=== PATIENT | female | born 1990 ===

== ENCOUNTER 2016-07-19 10:25 | Emergency (ER) | payer OTHER ==
[2016-07-19 10:31] VITALS: TEMP 98; BMI 30.2
--- NOTE | 2016-07-19 11:15 | ED PDOC ---
HPI: Abdomen Time Seen by Provider: 07/19/16 10:38 Chief Complaint (Nursing): Abdominal Pain History Per: Patient History/Exam Limitations: no limitations Onset/Duration Of Symptoms: Gradual (today) Current Symptoms Are (Timing): Still Present Severity: Mild Location Of Pain/Discomfort: RLQ Quality Of Discomfort: Dull, Aching Associated Symptoms: denies: Fever, Chills, Nausea, Vomiting, Diarrhea, Back Pain, Chest Pain, Constipation, Urinary Symptoms Exacerbating Factors: None Alleviating Factors: None Last Bowel Movement: Yesterday Additional History Per: Patient Additional Complaint(s): pt is 7 weeks , c/o rlq abd pain since last night. pt denies vag bleeding. pt is g3,p1, misca 1. no trauma Past Medical History Reviewed: Historical Data, Nursing Documentation, Vital Signs Vital Signs: Last Vital Signs Temp 98 F 07/19/16 10:30 Pulse 95 H 07/19/16 10:30 Resp 18 07/19/16 10:39 BP 115/60 07/19/16 10:30 Pulse Ox 99 07/19/16 11:15 - Medical History PMH: No Chronic Diseases - Surgical History Surgical History: - Family History Family History: States: Unknown Family Hx - Living Arrangements Living Arrangements: With Family - Social History Current smoker - smoking cessation education provided: No - Immunization History Hx Tetanus Toxoid Vaccination: No Hx Influenza Vaccination: Yes (2014) Hx Pneumococcal Vaccination: No - Home Medications Home Medications: Ambulatory Orders Medication Instructions Recorded No Known Home Med 06/16/16 - Allergies Allergies/Adverse Reactions: Allergies Allergy/AdvReac Type Severity Reaction Status Date / Time ibuprofen Allergy RASH Verified 07/19/16 10:39 Review of Systems ROS Statement: Except As Marked, All Systems Reviewed And Found Negative Constitutional: Negative for: Fever, Chills Respiratory: Negative for: Cough, Shortness of Breath Gastrointestinal: Positive for: Abdominal Pain. Negative for: Nausea, Vomiting , Diarrhea Genitourinary Female: Positive for: Pelvic Pain. Negative for: Dysuria, Vaginal Discharge, Vaginal Bleeding Neurological: Negative for: Weakness, Numbness Physical Exam - Reviewed Nursing Documentation Reviewed: Yes Vital Signs Reviewed: Yes - Physical Exam Appears: Positive for: Well, Uncomfortable Head Exam: Positive for: ATRAUMATIC, NORMAL INSPECTION, NORMOCEPHALIC Neck: Positive for: Normal, Painless ROM, Supple Cardiovascular/Chest: Positive for: Regular Rate, Rhythm, Chest Non Tender. Negative for: Edema, Gallop Respiratory: Positive for: Normal Breath Sounds. Negative for: Decreased Breath Sounds, Accessory Muscle Use, Crackles Gastrointestinal/Abdominal: Positive for: Normal Exam, Bowel Sounds, Soft, Other (obese). Negative for: Tenderness Back: Positive for: Normal Inspection. Negative for: L CVA Tenderness, R CVA Tenderness, Vertebral Tenderness Extremity: Positive for: Normal ROM. 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 Negative for: Motor/Sensory Deficits - Laboratory Results Result Diagrams: 07/19/16 11:15 07/19/16 11:15 - ECG O2 Sat by Pulse Oximetry: 99 Pulse Ox Interpretation: Normal - Progress ED Course And Treament: us IMPRESSION: Single live intrauterine gestation of approximately 7 weeks 5 days gestational age. No subchorionic hemorrhage. Cervix closed. Possible right ovarian corpus luteum. No free fluid. repeat abd exam reveals no tenderness no signs of infection. advise close f/u with pmd tomorrow and if unable to return to this ed for eval. pt agree's with plan and leaves ambulatory and in good spirits. Re-evaluation Time: 13:37 Condition: Improved Disposition - Clinical Impression Clinical Impression: Abdominal pain during - Patient ED Disposition Is Patient to be Admitted: No Counseled Patient/Family Regarding: Studies Performed, Diagnosis, Need For Followup - Disposition Disposition: Routine/Home Disposition Time: 13:38 Condition: GOOD Additional Instructions: see your docotr by tomorrow if unbale return to the ed for eval. Instructions: Abdominal Pain in (ED)
[2016-07-19 11:32] LABS: BASO % 0.4 % (0.0-2.0); EOS # 0.1 K/uL (0.0-0.7); EOS % 1.5 % (0.0-4.0); HEMATOCRIT 39.1 % (34.0-47.0); LYMPH % 23.7 % (20.0-40.0); MEAN CELL VOLUME 85.4 fl (81.0-99.0); MEAN CORPUSCULAR HEMOGLOBIN 27.9 pg (27.0-31.0); MEAN CORPUSCULAR HGB CONC 32.7 g/dL (33.0-37.0); MEAN PLATELET VOLUME 9.6 fl (7.2-11.7); MONO # 0.8 K/uL (0.0-0.8); MONO % 9.2 % (0.0-10.0); NEUT # 5.6 K/uL (1.8-7.0); NEUT % 65.2 % (50.0-75.0); RED CELL DISTRIBUTION WIDTH 14.3 % (11.5-14.5); WHITE BLOOD COUNT 8.7 K/uL (4.8-10.8)
[2016-07-19 11:34] LABS: RBC URINE 2 /hpf (0-3); URINE BILIRUBIN NEGATIVE (NEGATIVE); URINE BLOOD NEGATIVE (NEGATIVE); URINE COLOR YELLOW (YELLOW); URINE GLUCOSE (UA) NEG (Normal); URINE KETONE NEGATIVE (NEGATIVE); URINE LEUKOCYTE ESTERASE NEG Leu/uL (Negative); URINE PROTEIN 30 mg/dL (NEGATIVE); URINE UROBILINOGEN 0.2-1.0 mg/dL (0.2-1.0); WBC URINE 1 /hpf (0-5)
[2016-07-19 11:38] LABS: ALB/GLOB RATIO 1.1 (1.0-2.1); ALKALINE PHOSPHATASE 49 U/L (38-126); ALT/SGPT 18 U/L (9-52); AST/SGOT 19 U/L (14-36); BILIRUBIN,TOTAL 0.5 mg/dl (0.2-1.3); BLOOD UREA NITROGEN 12 mg/dl (7-17); CALCIUM 9.2 mg/dL (8.4-10.2); CARBON DIOXIDE 23 mmol/L (22-30); CHLORIDE 107 mmol/L (98-107); GFR AFRICAN-AMERICAN > 60; GLUCOSE,RANDOM 70 mg/dL (65-105); LIPASE 45 U/L (23-300); POTASSIUM 3.6 MMOL/L (3.6-5.0); SODIUM 142 mmol/l (132-148); TOTAL PROTEIN 6.9 G/DL (6.3-8.2)
--- NOTE | 2016-07-19 13:07 | US ---
PROCEDURE: Obstetrical ultrasound examination HISTORY: rlq abd pain COMPARISON: Not available TECHNIQUE: Transabdominal FINDINGS: The examination demonstrates a single live intrauterine gestation. cardiac activity is observed. The heart rate is 113 beats per minute. 4 mm yolk sac is visualized. There is no subchorionic hemorrhage. The crown-rump length corresponds to 8 weeks 1 day. The gestational sac diameter corresponds to 7 weeks 1 day. The average ultrasound age is 7 weeks 5 days. The RAMON by ultrasound is 03/02/2017. The uterus measures 13.6 x 8.2 x 5.8 cm. The cervix is long and closed. The right ovary measures 2.1 x 2.2 x 2.8 cm. Questionable right ovarian corpus luteum. Normal flow is demonstrated. The left ovary measures 2.5 x 1.6 x 2.3 cm. Normal flow is demonstrated. There is no free fluid in the cul-de-sac. IMPRESSION: Single live intrauterine gestation of approximately 7 weeks 5 days gestational age. No subchorionic hemorrhage. Cervix closed. Possible right ovarian corpus luteum. No free fluid.
[2016-07-19 14:11] VITALS: BP 137/88; PULSE 84; RESP 16; O2SAT 100
== END 2016-07-19 14:10 | disposition home or self-care (01) ==
LOC: H.ER 10:25
DX: O26.891 Other specified pregnancy related conditions, first trimester (principal); R10.9 Unspecified abdominal pain; Z3A.01 Less than 8 weeks gestation of pregnancy

== ENCOUNTER 2016-07-31 09:23 | Inpatient (IN) | payer OTHER ==
[2016-07-31 09:24] VITALS: BMI 30.2
--- NOTE | 2016-07-31 10:15 | ED PDOC ---
HPI: Female Pain Time Seen by Provider: 07/31/16 09:54 Chief Complaint (Nursing): Medical Clearance Chief Complaint (Provider): Medical Clearance History Per: Patient History/Exam Limitations: no limitations Onset/Duration Of Symptoms: Days (x1 day) Current Symptoms Are (Timing): Still Present Additional Complaint(s): 26 y/o female who presents to the emergency department because patient was advised to visit the ER after sonogram results showed the baby had no heartbeat at [facility] around 6:30 pm yesterday, 07/30/2016. Patient is 8week and 5 days . Denies vaginal bleeding or pelvic pain. A5. PMD: Dr. Chucky Gilbert MD Past Medical History Reviewed: Historical Data, Nursing Documentation, Vital Signs Vital Signs: Last Vital Signs Temp 97.5 F L 07/31/16 09:27 Pulse 80 07/31/16 09:27 Resp 16 07/31/16 09:27 BP 124/78 07/31/16 09:27 Pulse Ox 99 07/31/16 09:27 - Medical History PMH: No Chronic Diseases - Surgical History Surgical History: - Family History Family History: States: Unknown Family Hx - Social History Current smoker - smoking cessation education provided: No Alcohol: None Drugs: Denies - Immunization History Hx Tetanus Toxoid Vaccination: No Hx Influenza Vaccination: Yes (2014) Hx Pneumococcal Vaccination: No - Home Medications Home Medications: Ambulatory Orders Medication Instructions Recorded No Known Home Med 06/15/16 No Known Home Med 06/16/16 - Allergies Allergies/Adverse Reactions: Allergies Allergy/AdvReac Type Severity Reaction Status Date / Time ibuprofen Allergy RASH Verified 07/31/16 10:04 Review of Systems ROS Statement: Except As Marked, All Systems Reviewed And Found Negative Genitourinary Female: Positive for: Other (: baby with no heartbeat). Negative for: Vaginal Bleeding, Pelvic Pain Physical Exam - Reviewed Nursing Documentation Reviewed: Yes Vital Signs Reviewed: Yes - Physical Exam Appears: Positive for: Non-toxic, No Acute Distress Head Exam: Positive for: ATRAUMATIC, NORMOCEPHALIC Skin: Positive for: Normal Color, Warm, Dry Neck: Positive for: Normal, Supple Cardiovascular/Chest: Positive for: Regular Rate, Rhythm. Negative for: Murmur Respiratory: Positive for: Normal Breath Sounds. Negative for: Accessory Muscle Use, Respiratory Distress Gastrointestinal/Abdominal: Positive for: Normal Exam, Soft. Negative for: Tenderness Neurologic/Psych: Positive for: Alert, Oriented - Laboratory Results Result Diagrams: 07/31/16 10:31 07/31/16 10:31 - ECG O2 Sat by Pulse Oximetry: 99 (RA) Pulse Ox Interpretation: Normal - Physician Consult Information Time Consulting Physican Contacted: 10:13 Physician Contacted: Chucky Gilbert Outcome Of Conversation: Admit for D&C, basic labs. Medical Decision Making Medical Decision Making: Time: 9:09 Initial impression: Demises Initial plan: --ABO/RH Type Stat --Type and Screen Stat --COMP Metabolic Panel --ED Urine Dipstick (POC) --CBC w/ differential --Partial Thromboplastin Time (COAG) --Prothrombin time (COAG) --Urinalysis Stat --Admit to hospital routine Scribe Attestation: Documented by Gemma Hoskins, acting as a scribe for Aga Ann. Provider Scribe Attestation: All medical record entries made by the Scribe were at my direction and personally dictated by me. I have reviewed the chart and agree that the record accurately reflects my personal performance of the history, physical exam, medical decision making, and the department course for this patient. I have also personally directed, reviewed, and agree with the discharge instructions and disposition. Disposition - Clinical Impression Clinical Impression: demise - Patient ED Disposition Is Patient to be Admitted: Yes - Disposition Disposition Time: 10:04 Condition: STABLE - Pt Status Changed To: Hospital Disposition Of: Observation - POA Present On Arrival: None
[2016-07-31 10:42] LABS: BASO # 0.1 K/uL (0.0-0.2); BASO % 0.9 % (0.0-2.0); EOS # 0.2 K/uL (0.0-0.7); EOS % 1.9 % (0.0-4.0); HEMATOCRIT 40.9 % (34.0-47.0); LYMPH # 2.3 K/uL (1.0-4.3); LYMPH % 28.1 % (20.0-40.0); MEAN CORPUSCULAR HEMOGLOBIN 28.1 pg (27.0-31.0); MEAN CORPUSCULAR HGB CONC 33.1 g/dL (33.0-37.0); MONO # 0.5 K/uL (0.0-0.8); MONO % 6.3 % (0.0-10.0); NEUT # 5.2 K/uL (1.8-7.0); NEUT % 62.8 % (50.0-75.0); NRBC % 0.2 % (0.0-0.0); RED CELL DISTRIBUTION WIDTH 14.6 % (11.5-14.5); WHITE BLOOD COUNT 8.3 K/uL (4.8-10.8)
[2016-07-31 10:50] LABS: RBC URINE 3 /hpf (0-3); URINE BILIRUBIN NEGATIVE (NEGATIVE); URINE BLOOD NEGATIVE (NEGATIVE); URINE COLOR YELLOW (YELLOW); URINE GLUCOSE (UA) NEG (Normal); URINE KETONE NEGATIVE (NEGATIVE); URINE LEUKOCYTE ESTERASE TRACE Leu/uL (Negative); URINE PROTEIN 30 mg/dL (NEGATIVE); URINE UROBILINOGEN 0.2-1.0 mg/dL (0.2-1.0); WBC URINE 3 /hpf (0-5)
[2016-07-31 10:52] LABS: ALB/GLOB RATIO 1.1 (1.0-2.1); ALT/SGPT 30 U/L (9-52); AST/SGOT 31 U/L (14-36); BILIRUBIN,TOTAL 0.8 mg/dl (0.2-1.3); BLOOD UREA NITROGEN 11 mg/dl (7-17); CALCIUM 9.3 mg/dL (8.4-10.2); CARBON DIOXIDE 22 mmol/L (22-30); CHLORIDE 105 mmol/L (98-107); GFR AFRICAN-AMERICAN > 60; GLUCOSE,RANDOM 81 mg/dL (65-105); POTASSIUM 4.2 MMOL/L (3.6-5.0); SODIUM 143 mmol/l (132-148); TOTAL PROTEIN 7.8 G/DL (6.3-8.2)
[2016-07-31 10:53] LABS: ALKALINE PHOSPHATASE 53 U/L (38-126); PARTIAL THROMBOPLASTIN TIME 27.5 SECONDS (23.3-32.5)
[2016-07-31] MEDS ORDERED: Propofol 10 mg/ml Inj (20 ML) ONE (13:34)
[2016-07-31] MEDS ORDERED: Oxytocin 10 Units/ml Inj ONE ×2 (13:52→14:21)
[2016-07-31] MEDS ORDERED: Lactated Ringer's 1,000 ML IV ONE (14:00)
[2016-07-31] MEDS ORDERED: Chlorhexidine Gluconate 2OZ GEL TP ONE (14:06)
[2016-07-31] MEDS ORDERED: DiphenhydrAMINE 50 mg/ml Inj IVP PRN (14:54)
[2016-07-31] MEDS ORDERED: Oxycodone/Acetaminophen 5/325 mg Tab PO PRN (15:08)
[2016-07-31] MEDS ORDERED: Sodium Chloride 0.9% 1,000 ML IV SCH (15:45)
[2016-07-31 20:55] VITALS: BP 115/77; PULSE 90; RESP 18; TEMP 98.4
--- NOTE | 2016-08-01 08:29 | OP ---
PROCEDURE DATE: 07/31/2016 PREOPERATIVE DIAGNOSIS: Miss . POSTOPERATIVE DIAGNOSIS: Missed , pending pathology. SURGEON: Chucky Gilbert MD ANESTHESIA: Dr. Cason, general anesthesia. PROCEDURE: With the patient in the dorsal lithotomy position under general anesthesia, the patient w as prepped and draped in the usual manner. A straight catheter was used to empty the bladder after w hich the patient was examined under anesthesia. The uterus was found to be enlarged. The weighted s peculum was placed in the posterior vagina. Cervix was grasped anteriorly with single tooth tenaculu m, dilated and curetted with suction curettage and also sharp curetting. Obtained a large amount of tissue. Estimated blood loss of about 100-150 mL. After this was done and hemostasis was maintained , the procedure was completed and the patient was in satisfactory condition on the way to the recover y room. Chucky Gilbert MD cc: 22 TT: 08/01/2016 08:28:56 jn
[2016-08-01 22:12] VITALS: O2SAT 99
--- NOTE | 2016-08-07 13:25 | PCM.SURG1 ---
Surgeon's Initial Post Op Note - Surgeon's Notes Surgeon: Dr.George Musa Medical Lab Tech Instructor: none Type of Anesthesia: General Endo, General LMA Anesthesia Administered By: Pre-Operative Diagnosis: missed Operative Findings: large amount of tissue on curettage Post-Operative Diagnosis: same pending pathology Operation Performed: dilatation and curettage with suction Specimen/Specimens Removed: poc Estimated Blood Loss: EBL {In ML}: 100 Blood Products Given: N/A Drains Used: No Drains Post-Op Condition: Good Date of Surgery/Procedure: 07/31/16 Time of Surgery/Procedure: 02:00 Addendum Addendum: 08/03/16 17:06 procedure done was dilatation and curretage with suction adolfo missed
--- NOTE | 2016-08-07 15:09 | OP ---
PROCEDURE DATE: 07/31/2016 ADDENDUM The procedure that was done on the patient is dilatation and curettage with suction. Chucky Gilbert MD cc: 22 TT: 08/07/2016 15:08:22 en
== END 2016-07-31 20:30 | disposition home or self-care (01) | DRG 381 ==
LOC: H.ER 09:23 → H.ERHOLD 10:14 → H.MEDSURG1 11:02
PROVIDERS: ADMIT Specialist; ATTEND Specialist
PROC: 10D17ZZ Extraction of Products of Conception, Retained, Via Natural or Artificial Opening (ICD-10-PCS; principal; 2016-07-31 14:15)
DX: O02.1 Missed abortion (principal); Z88.6 Allergy status to analgesic agent; Z3A.08 8 weeks gestation of pregnancy

== ENCOUNTER 2016-11-24 20:36 | Emergency (ER) | payer OTHER ==
[2016-11-24 20:46] VITALS: BMI 29.2
[2016-11-24 20:48] VITALS: BP 119/70; PULSE 92; RESP 18; TEMP 99.1; O2SAT 100
[2016-11-24] MEDS ORDERED: Sodium Chloride 0.9% 1,000 ML IV STA (21:08)
--- NOTE | 2016-11-24 21:12 | ED PDOC ---
HPI: General Adult Time Seen by Provider: 11/24/16 20:56 Chief Complaint (Nursing): GI Problem Chief Complaint (Provider): 8wks gestation, vomiting History Per: Patient History/Exam Limitations: no limitations Onset/Duration Of Symptoms: Days (2 weeks) Current Symptoms Are (Timing): Still Present Additional History Per: Patient Additional Complaint(s): 26 y/o female, approx 8 weeks gestation, presents with vomiting x 2 weeks. Associated lower pelvic cramping. Patient states she called her Bioinformatics Developer Dr. Evans today and was advised to come to the ED. Denies fever, cough, congestion, chest pain, shortness of breath, palpitations, changes in bowel movements, urinary symptoms, vaginal bleeding/discharge. LMP 09/23/16 Past Medical History Reviewed: Historical Data, Nursing Documentation, Vital Signs Vital Signs: Last Vital Signs Temp 99.1 F 11/24/16 20:46 Pulse 92 H 11/24/16 20:46 Resp 18 11/24/16 20:46 BP 119/70 11/24/16 20:46 Pulse Ox 100 11/24/16 23:09 - Medical History PMH: No Chronic Diseases Denies: HIV, Chronic Kidney Disease - Surgical History Surgical History: - Family History Family History: States: Unknown Family Hx - Living Arrangements Living Arrangements: With Family - Immunization History Hx Tetanus Toxoid Vaccination: No Hx Influenza Vaccination: No Hx Pneumococcal Vaccination: No - Home Medications Home Medications: Ambulatory Orders Medication Instructions Recorded No Known Home Med 06/15/16 No Known Home Med 06/16/16 - Allergies Allergies/Adverse Reactions: Allergies Allergy/AdvReac Type Severity Reaction Status Date / Time ibuprofen Allergy RASH Verified 11/24/16 20:46 Review of Systems ROS Statement: Except As Marked, All Systems Reviewed And Found Negative Gastrointestinal: Positive for: Nausea, Vomiting Genitourinary Female: Positive for: Pelvic Pain Physical Exam - Reviewed Nursing Documentation Reviewed: Yes Vital Signs Reviewed: Yes - Physical Exam Appears: Positive for: Well, Non-toxic, No Acute Distress Head Exam: Positive for: ATRAUMATIC, NORMAL INSPECTION, NORMOCEPHALIC Skin: Positive for: Normal Color Eye Exam: Positive for: Normal appearance ENT: Positive for: Normal ENT Inspection Cardiovascular/Chest: Positive for: Regular Rate, Rhythm Respiratory: Positive for: Normal Breath Sounds Gastrointestinal/Abdominal: Positive for: Bowel Sounds, Soft, Tenderness ( suprapubic) Back: Positive for: Normal Inspection Extremity: Positive for: Normal ROM Neurologic/Psych: Positive for: Alert, Oriented - Laboratory Results Result Diagrams: 11/24/16 21:41 11/24/16 21:41 Urine POC: Positive Urine dip results: Negative for: Leukocyte Esterase, Blood, Nitrate, Ketones - ECG O2 Sat by Pulse Oximetry: 100 - Progress ED Course And Treament: labs, urine, IV fluids, IV zofran, OB TV u/s EXAM: US First Trimester, Transabdominal CLINICAL HISTORY: 26 years old, female; Pain; Other: Abd cramps; Gestational age or lmp: 09/27/16; ; Additional info: 8wks, cramping TECHNIQUE: Real-time transabdominal obstetrical ultrasound of the maternal pelvis and a first trimester with image documentation. COMPARISON: No relevant prior studies available. FINDINGS: Gestation: Single live intrauterine gestation. heart rate of 163 beats per minute. [place]-rump length of 1.84 cm, correlating with gestational age of 8 weeks 2 days. Uterus/cervix: No subchorionic hemorrhage. No cervical dilatation or effacement. Ovaries: RIGHT ovary: Normal. LEFT ovary: 1.4 x 1.5 x 1.4 cm anechoic lesion. No adnexal masses. Free fluid: No significant free fluid. IMPRESSION: 1. Single live intrauterine gestation. 2. LEFT ovarian cyst. 3. Incidental/non-acute findings are described above On re-eval, patient states she is feeling better. Tolerating PO. Case discussed with Dr. Evans, recommends follow up in office tomorrow am. Patient educated on findings, advised fluids. Follow up as instructed. Return to ED for worsening/concerning symptoms. Disposition - Clinical Impression Clinical Impression: Hyperemesis gravidarum, Ovarian cyst - Patient ED Disposition Is Patient to be Admitted: No Counseled Patient/Family Regarding: Studies Performed, Diagnosis, Need For Followup - Disposition Disposition: Routine/Home Disposition Time: 23:33 Condition: IMPROVED Additional Instructions: Follow up with Dr. Evans in the office tomorrow morning. Drink plenty of fluids. Return to ED for worsening/concerning symptoms. Instructions: Hyperemesis Gravidarum (ED), Ovarian Cyst (ED)
[2016-11-24 21:47] LABS: BASO % 0.4 % (0.0-2.0); EOS # 0.1 K/uL (0.0-0.7); HEMOGLOBIN 12.4 g/dL (12.0-16.0); LYMPH # 2.4 K/uL (1.0-4.3); LYMPH % 19.5 % (20.0-40.0); MEAN CORPUSCULAR HEMOGLOBIN 27.4 pg (27.0-31.0); MEAN PLATELET VOLUME 9.8 fl (7.2-11.7); MONO # 0.8 K/uL (0.0-0.8); MONO % 6.4 % (0.0-10.0); NEUT # 9.1 K/uL (1.8-7.0); NEUT % 72.7 % (50.0-75.0); RBC 4.51 Mil/uL (3.80-5.20); RED CELL DISTRIBUTION WIDTH 14.6 % (11.5-14.5); WHITE BLOOD COUNT 12.5 K/uL (4.8-10.8)
[2016-11-24 21:56] LABS: ALB/GLOB RATIO 1.2 (1.0-2.1); ALBUMIN 3.8 g/dL (3.5-5.0); ALT/SGPT 63 U/L (9-52); AST/SGOT 37 U/L (14-36); BLOOD UREA NITROGEN 11 mg/dl (7-17); CALCIUM 8.9 mg/dL (8.4-10.2); GFR AFRICAN-AMERICAN > 60; GFR NON-AFRICAN AMERICAN > 60
--- NOTE | 2016-11-24 23:00 | US ---
EXAM: US First Trimester, Transabdominal CLINICAL HISTORY: 26 years old, female; Pain; Other: Abd cramps; Gestational age or lmp: 09/27/; ; Additional info: 8wks, cramping TECHNIQUE: Real-time transabdominal obstetrical ultrasound of the maternal pelvis and a first trimester with image documentation. COMPARISON: No relevant prior studies available. FINDINGS: Gestation: Single live intrauterine gestation. heart rate of 163 beats per minute. [place]-rump length of 1.84 cm, correlating with gestational age of 8 weeks 2 days. Uterus/cervix: No subchorionic hemorrhage. No cervical dilatation or effacement. Ovaries: RIGHT ovary: Normal. LEFT ovary: 1.4 x 1.5 x 1.4 cm anechoic lesion. No adnexal masses. Free fluid: No significant free fluid. IMPRESSION: 1. Single live intrauterine gestation. 2. LEFT ovarian cyst. 3. Incidental/non-acute findings are described above.
== END 2016-11-24 23:48 | disposition home or self-care (01) ==
LOC: H.ER 20:36
DX: O21.0 Mild hyperemesis gravidarum (principal); N83.202 Unspecified ovarian cyst, left side; Z3A.08 8 weeks gestation of pregnancy; O26.891 Other specified pregnancy related conditions, first trimester; O34.81 Maternal care for other abnormalities of pelvic organs, first trimester

== ENCOUNTER 2016-12-01 10:01 | Emergency (ER) | payer OTHER ==
[2016-12-01 10:02] VITALS: BMI 29.2
[2016-12-01 10:06] VITALS: BP 123/80; PULSE 81; RESP 17; TEMP 98.5; O2SAT 100
[2016-12-01] MEDS ORDERED: Sodium Chloride 0.9% 1,000 ML IV STA (10:49)
--- NOTE | 2016-12-01 10:52 | ED PDOC ---
HPI: Female Pain Time Seen by Provider: 12/01/16 10:11 Chief Complaint (Nursing): GI Problem Chief Complaint (Provider): Hyperemisis History Per: Patient Additional Complaint(s): 26 yo female, no PMH, presents to ED currently at 9 weeks (), with severe nausea and vomiting x 1 week now. Pt reports 4-5 episodes of non bloody, non billious vomiting daily with decreased PO intake. Pt on Zofran, Prescribed to her by Dr. Tellez, without relief. Pt reports she has seen Dr. Anaya for her N/V, has not had an US yet. First Ob appt on Dec 10 Past Medical History Reviewed: Nursing Documentation, Vital Signs Vital Signs: Last Vital Signs Temp 98.5 F 12/01/16 10:04 Pulse 81 12/01/16 10:04 Resp 17 12/01/16 10:04 BP 123/80 12/01/16 10:04 Pulse Ox 100 12/01/16 10:04 - Medical History PMH: No Chronic Diseases Denies: HIV, Chronic Kidney Disease - Surgical History Surgical History: - Family History Family History: States: Unknown Family Hx - Living Arrangements Living Arrangements: With Family - Social History Current smoker - smoking cessation education provided: No Alcohol: None Drugs: Denies - Immunization History Hx Tetanus Toxoid Vaccination: No Hx Influenza Vaccination: No Hx Pneumococcal Vaccination: No - Home Medications Home Medications: Ambulatory Orders Medication Instructions Recorded Doxylamine/Pyridoxine HCl (B6) 2 each PO HS #20 tablet. 12/01/16 [Melissa Mandujano 10-10 mg Tablet] - Allergies Allergies/Adverse Reactions: Allergies Allergy/AdvReac Type Severity Reaction Status Date / Time ibuprofen Allergy RASH Verified 12/01/16 10:22 Review of Systems ROS Statement: Except As Marked, All Systems Reviewed And Found Negative Gastrointestinal: Positive for: Nausea, Vomiting, Abdominal Pain Physical Exam - Reviewed Nursing Documentation Reviewed: Yes Vital Signs Reviewed: Yes - Physical Exam Appears: Positive for: Well, Non-toxic, No Acute Distress Head Exam: Positive for: ATRAUMATIC, NORMAL INSPECTION, NORMOCEPHALIC Skin: Positive for: Normal Color, Warm, DRY Eye Exam: Positive for: EOMI, Normal appearance, PERRL ENT: Positive for: Normal ENT Inspection Neck: Positive for: Normal, Painless ROM Cardiovascular/Chest: Positive for: Regular Rate, Rhythm Respiratory: Positive for: CNT, Normal Breath Sounds Gastrointestinal/Abdominal: Positive for: Normal Exam, Bowel Sounds, Soft Back: Positive for: Normal Inspection Extremity: Positive for: Normal ROM Neurologic/Psych: Positive for: Alert, Oriented - Laboratory Results Result Diagrams: 12/01/16 11:00 12/01/16 11:00 - ECG O2 Sat by Pulse Oximetry: 100 Medical Decision Making Medical Decision Making: IV access established and diagnostics ordered Treatment initiated with IVF and Zofran Pt doing well on re-eval, no complaints of N/V US: IMPRESSION: Single live intrauterine gestation with mean gestational age of 9 weeks and 6 days. The estimated date of delivery by ultrasound is 06/30/2017. The ultrasound dates correspond with the clinical dates. Given Melissa RX Advised to [facility] with dr. Tellez. return to ED with any concerns Disposition - Clinical Impression Clinical Impression: Hyperemesis gravidarum - Patient ED Disposition Is Patient to be Admitted: No - Disposition Disposition: Routine/Home Disposition Time: 16:06 Condition: STABLE Prescriptions: Doxylamine/Pyridoxine HCl (B6) [Melissa Mandujano 10-10 mg Tablet] 2 each PO HS #20 tablet. Instructions: Hyperemesis Gravidarum (ED) Forms: [employer] ([place]), [facility] ED School/Work Excuse
[2016-12-01 11:23] LABS: BASO % 0.2 % (0.0-2.0); EOS # 0.1 K/uL (0.0-0.7); EOS % 1.1 % (0.0-4.0); HEMATOCRIT 38.9 % (34.0-47.0); LYMPH # 1.6 K/uL (1.0-4.3); LYMPH % 17.1 % (20.0-40.0); MEAN CELL VOLUME 82.9 fl (81.0-99.0); MEAN CORPUSCULAR HEMOGLOBIN 27.8 pg (27.0-31.0); MEAN CORPUSCULAR HGB CONC 33.5 g/dL (33.0-37.0); MEAN PLATELET VOLUME 10.5 fl (7.2-11.7); MONO # 0.6 K/uL (0.0-0.8); MONO % 6.1 % (0.0-10.0); NEUT # 7.2 K/uL (1.8-7.0); NEUT % 75.5 % (50.0-75.0); RED CELL DISTRIBUTION WIDTH 14.6 % (11.5-14.5); WHITE BLOOD COUNT 9.6 K/uL (4.8-10.8)
[2016-12-01 11:41] LABS: ALB/GLOB RATIO 1.2 (1.0-2.1); ALKALINE PHOSPHATASE 53 U/L (38-126); ALT/SGPT 34 U/L (9-52); AST/SGOT 20 U/L (14-36); BILIRUBIN,TOTAL 0.5 mg/dl (0.2-1.3); BLOOD UREA NITROGEN 11 mg/dl (7-17); CALCIUM 9.1 mg/dL (8.4-10.2); CARBON DIOXIDE 20 mmol/L (22-30); CHLORIDE 105 mmol/L (98-107); GFR AFRICAN-AMERICAN > 60; GLUCOSE,RANDOM 78 mg/dL (65-105); SODIUM 134 mmol/l (132-148); TOTAL PROTEIN 7.1 G/DL (6.3-8.2)
--- NOTE | 2016-12-01 14:01 | US ---
PROCEDURE: OB Pelvic Ultrasound HISTORY: 9 w, cramping heavy COMPARISON: 11/24/2016. FINDINGS: UTERUS: Gestational sac: Single intrauterine gestation. Heart rate: 162 bpm. age (Ultrasound estimated): 9 weeks and 6 days [place]-gestational hemorrhage: None. Date of delivery (Ultrasound estimated) : 06/30/2017 Uterus measures 15.8 x 6.0 x 0.2 cm. Normal in size and appearance. CERVIX: Long and closed. No cervical abnormality seen. RIGHT OVARY: Measures 3.3 x 1.6 x 3.0 cm. No mass lesion. Normal flow. LEFT OVARY: Measures 3.5 x 2 point by 3.7 cm. No solid mass. Normal flow. FREE FLUID: None. OTHER FINDINGS: None. IMPRESSION: Single live intrauterine gestation with mean gestational age of 9 weeks and 6 days. The estimated date of delivery by ultrasound is 06/30/2017. The ultrasound dates correspond with the clinical dates.
[2016-12-01 14:26] LABS: RBC URINE 5 /hpf (0-3); URINE BACTERIA FEW (<OCC); URINE BILIRUBIN NEGATIVE (NEGATIVE); URINE BLOOD SMALL (NEGATIVE); URINE COLOR YELLOW (YELLOW); URINE GLUCOSE (UA) NEG (Normal); URINE KETONE NEGATIVE (NEGATIVE); URINE LEUKOCYTE ESTERASE NEG Leu/uL (Negative); URINE PROTEIN NEGATIVE (NEGATIVE); URINE UROBILINOGEN 0.2-1.0 mg/dL (0.2-1.0)
== END 2016-12-01 15:58 | disposition home or self-care (01) ==
LOC: H.ER 10:01
DX: O21.1 Hyperemesis gravidarum with metabolic disturbance (principal); Z3A.09 9 weeks gestation of pregnancy
CPT/HCPCS: 76815; 80053; 81003; 81025; 84702; 85025; 96361; 96374; 99282; J2405; J7040

== ENCOUNTER 2017-03-12 09:34 | Emergency (ER) | payer OTHER ==
[2017-03-12 10:24] VITALS: BMI 30.2
[2017-03-12 11:05] LABS: RBC URINE 4 /hpf (0-3); TRANSITIONAL EPITHIAL 2 /hpf (0-3); URINE BACTERIA MOD (<OCC); URINE BILIRUBIN NEGATIVE (NEGATIVE); URINE BLOOD NEGATIVE (NEGATIVE); URINE COLOR YELLOW (YELLOW); URINE GLUCOSE (UA) NEG (Normal); URINE KETONE NEGATIVE (NEGATIVE); URINE LEUKOCYTE ESTERASE TRACE Leu/uL (Negative); URINE PROTEIN 30 mg/dL (NEGATIVE); URINE UROBILINOGEN 0.2-1.0 mg/dL (0.2-1.0); WBC URINE 7 /hpf (0-5)
[2017-03-15 14:13] VITALS: BP 122/78; PULSE 102; RESP 18; TEMP 97.9; O2SAT 100
== END 2017-03-12 11:50 | disposition home or self-care (01) ==
LOC: H.EROB 09:34 → H.EROB2 09:34
DX: O46.92 Antepartum hemorrhage, unspecified, second trimester (principal); Z3A.23 23 weeks gestation of pregnancy

== ENCOUNTER 2017-05-08 05:24 | Emergency (ER) | payer OTHER ==
[2017-05-08 05:24] VITALS: BMI 30.2
[2017-05-08 05:43] VITALS: O2SAT 98
[2017-05-08] MEDS ORDERED: Sodium Chloride 0.9% 1,000 ML IV STA ×3 (05:48→08:39)
--- NOTE | 2017-05-08 05:57 | ED PDOC ---
HPI: CCC, URI, Sore Throat Time Seen by Provider: 05/08/17 05:39 Chief Complaint (Nursing): Headache Chief Complaint (Provider): headache History Per: Patient History/Exam Limitations: no limitations Onset/Duration Of Symptoms: Days (x2) Current Symptoms Are (Timing): Still Present Additional Complaint(s): 27 year old female, currently 31 weeks , who presents to the emergency department with a complaint of flu-like symptoms including headache, bodyaches, dry cough, nausea and 3 episodes of vomiting ongoing since last night. Denied any fever, chills, diarrhea or shortness of breath. PMD: Chucky Gilbert MD Past Medical History Reviewed: Historical Data, Nursing Documentation, Vital Signs Vital Signs: Last Vital Signs Temp 97 F L 05/08/17 12:25 Pulse 128 H 05/08/17 12:25 Resp 19 05/08/17 12:23 BP 110/80 05/08/17 12:25 Pulse Ox 98 05/09/17 06:49 - Medical History PMH: No Chronic Diseases Denies: HIV, Chronic Kidney Disease - Surgical History Surgical History: Denies: No Surg Hx - Family History Family History: States: Unknown Family Hx - Social History Current smoker - smoking cessation education provided: No Ex-Smoker (has not smoked in the last 12 months): No Alcohol: None Drugs: Denies - Immunization History Hx Tetanus Toxoid Vaccination: No Hx Influenza Vaccination: No Hx Pneumococcal Vaccination: No - Home Medications Home Medications: Ambulatory Orders Medication Instructions Recorded Doxylamine/Pyridoxine HCl (B6) 2 each PO HS #20 tablet. 12/01/16 [Melissa Mandujano 10-10 mg Tablet] Oseltamivir Phosphate [Tamiflu] 75 mg PO BID 5 Days capsule 05/08/17 - Allergies Allergies/Adverse Reactions: Allergies Allergy/AdvReac Type Severity Reaction Status Date / Time ibuprofen Allergy RASH Verified 12/01/16 10:22 Review of Systems ROS Statement: Except As Marked, All Systems Reviewed And Found Negative Constitutional: Positive for: Other (bodyaches). Negative for: Fever, Chills Respiratory: Positive for: Cough (dry). Negative for: Shortness of Breath Gastrointestinal: Positive for: Nausea, Vomiting (x3). Negative for: Diarrhea Neurological: Positive for: Headache Physical Exam - Reviewed Nursing Documentation Reviewed: Yes Vital Signs Reviewed: Yes - Physical Exam Appears: Positive for: Well, Non-toxic, No Acute Distress Head Exam: Positive for: ATRAUMATIC, NORMAL INSPECTION, NORMOCEPHALIC Skin: Positive for: Normal Color Eye Exam: Positive for: Normal appearance, EOMI, PERRL. Negative for: Nystagmus , Other (photophobia) ENT: Positive for: Normal ENT Inspection, Pharynx Is (within normal limits). Negative for: Pharyngeal Erythema, Tonsillar Exudate Neck: Positive for: Normal, Painless ROM, Supple. Negative for: Decreased ROM Cardiovascular/Chest: Positive for: Chest Non Tender, Tachycardia. Negative for : Regular Rate, Rhythm, Bradycardia Respiratory: Positive for: Normal Breath Sounds. Negative for: Decreased Breath Sounds, Wheezing, Respiratory Distress Gastrointestinal/Abdominal: Positive for: Normal Exam, Soft, Other (gravid uterus). Negative for: Tenderness Neurologic/Psych: Positive for: Alert (x3), Oriented - Laboratory Results Result Diagrams: 05/08/17 06:00 05/08/17 06:00 - ECG O2 Sat by Pulse Oximetry: 98 (RA) Pulse Ox Interpretation: Normal Medical Decision Making Medical Decision Making: Initial Impression: Flu-like symptoms in setting of Initial Plan: * EKG * CMP * Lact acid, plasma * Urine dipstick * CBC * NS 1,000ml IV per 1,000mls/hr * Reglan 10mg IVPB * Tamiflu 75mg PO * Tylenol 975mg PO * Blood culture * Influenza A B * UA ____ Time: 0700 --Patient endorsed to Dr. Garrett Tavera. Pending lab results and re- evaluation. Scribe Attestation: Documented by Dee Infante, acting as a scribe for Flako Joshi MD. Provider Scribe Attestation: All medical record entries made by the Scribe were at my direction and personally dictated by me. I have reviewed the chart and agree that the record accurately reflects my personal performance of the history, physical exam, medical decision making, and the department course for this patient. I have also personally directed, reviewed, and agree with the discharge instructions and disposition. Disposition - Clinical Impression Clinical Impression: Flu-like symptoms, Dehydration, Tachycardia - Disposition Disposition: Transfer of Care Disposition Time: 07:00 Condition: STABLE Additional Instructions: You will see the OBGYN in [place] today straight from the ER. Return if not better in 3 days. Prescriptions: Oseltamivir Phosphate [Tamiflu] 75 mg PO BID 5 Days capsule Instructions: Dehydration (ED), Upper Respiratory Infection (ED) Forms: [employer] (Kinyarwanda)
[2017-05-08 06:27] LABS: BASO % 0.2 % (0.0-2.0); EOS % 0.4 % (0.0-4.0); HEMOGLOBIN 10.7 g/dL (12.0-16.0); LYMPH # 0.7 K/uL (1.0-4.3); LYMPH % 8.4 % (20.0-40.0); MEAN CELL VOLUME 81.8 fl (81.0-99.0); MEAN CORPUSCULAR HEMOGLOBIN 26.5 pg (27.0-31.0); MEAN CORPUSCULAR HGB CONC 32.5 g/dL (33.0-37.0); MEAN PLATELET VOLUME 9.4 fl (7.2-11.7); MONO # 0.9 K/uL (0.0-0.8); MONO % 10.4 % (0.0-10.0); NEUT % 80.6 % (50.0-75.0); NRBC % 0.2 % (0.0-0.0); PLATELET COUNT 137 K/uL (130-400); RBC 4.01 Mil/uL (3.80-5.20); RED CELL DISTRIBUTION WIDTH 14.6 % (11.5-14.5); WHITE BLOOD COUNT 8.8 K/uL (4.8-10.8)
[2017-05-08 06:50] LABS: ALB/GLOB RATIO 0.9 (1.0-2.1); ALBUMIN 3.2 g/dL (3.5-5.0); ALT/SGPT 28 U/L (9-52); AST/SGOT 15 U/L (14-36); BLOOD UREA NITROGEN 5 mg/dl (7-17); CALCIUM 8.8 mg/dL (8.4-10.2); GFR AFRICAN-AMERICAN > 60; GFR NON-AFRICAN AMERICAN > 60
[2017-05-08 08:06] LABS: SQUAMOUS EPITHIAL 3 /hpf (0-5); URINE BACTERIA MOD (<OCC); URINE BILIRUBIN NEGATIVE (NEGATIVE); URINE BLOOD NEGATIVE (NEGATIVE); URINE CLARITY CLOUDY (Clear); URINE COLOR YELLOW (YELLOW); URINE GLUCOSE (UA) NEG (Normal); URINE LEUKOCYTE ESTERASE NEG Leu/uL (Negative); URINE NITRATE NEGATIVE (NEGATIVE); URINE PROTEIN 30 mg/dL (NEGATIVE)
[2017-05-08 11:35] LABS: BANDS 59 % (0-2); BASOPHIL 1 % (0-2); LYMPHOCYTE 1 % (20-50); MONOCYTE 2 % (0-10); NEUTROPHIL 35 % (42-75); PLASMACYTES 2 (0-0); TOTAL CELLS COUNTED 100
[2017-05-08 11:36] LABS: HYPOCHROMIC SLIGHT; PLATELET ESTIMATE NORMAL (NORMAL); POLYCHROMIC SLIGHT
--- NOTE | 2017-05-08 12:06 | ED PDOC ---
- Laboratory Results Result Diagrams: 05/08/17 06:00 05/08/17 06:00 - ECG O2 Sat by Pulse Oximetry: 98 - Progress ED Course And Treament: 700: Stable. Took over care from Dr. Joshi. Fu on hr and re-eval. 1145: Spoke with Dr. Musa. Will see pt. in [place] for further eval. Wants dc from ED. Aware of HR still 115-130. Pt. with no chest pain, dyspnea, leg pain. No palpitations. No weakness. Will rx tamiflu. AAOx3. Pain free. Tolerated PO. Disposition Counseled Patient/Family Regarding: Studies Performed, Diagnosis, Need For Followup, Rx Given - Clinical Impression Clinical Impression: Flu-like symptoms, Dehydration, Tachycardia - POA Present On Arrival: None - Disposition Referrals: Chucky Musa MD [Staff Provider] - 05/10/17 Disposition: Routine/Home Disposition Time: 12:07 Condition: STABLE Additional Instructions: You will see the OBGYN in [place] today straight from the ER. Return if not better in 3 days. Prescriptions: Oseltamivir Phosphate [Tamiflu] 75 mg PO BID 5 Days capsule Instructions: Dehydration (ED), Upper Respiratory Infection (ED) Forms: [employer] (Croatian)
[2017-05-08 12:24] VITALS: BP 110/80; PULSE 128; RESP 19
[2017-05-08 12:26] VITALS: TEMP 97
== END 2017-05-08 12:28 | disposition home or self-care (01) ==
LOC: H.ER 05:24
DX: J06.9 Acute upper respiratory infection, unspecified (principal); E86.0 Dehydration; Z3A.31 31 weeks gestation of pregnancy; O99.513 Diseases of the respiratory system complicating pregnancy, third trimester
CPT/HCPCS: 80053; 81003; 83605; 85025; 87040; 87804; 96361; 96365; 99285; J2765; J7040

== ENCOUNTER 2017-05-08 12:31 | Emergency (ER) | payer OTHER ==
[2017-05-08 13:24] VITALS: BMI 34.3
--- NOTE | 2017-05-08 16:23 | OBHP ---
Datetime: 05/08/2017 13:30 IP Adm Impression: , intrauterine IP Admit Plan: Observation/Evaluation Admit Comment, IP Provider: 27 yo ega 32.3 presents with 2 day history of cough. Pt denies sick contacts, vb, lof, ctx, CP/SOB/V/dysuria +: fm; nausea pnc: Dr. Evans obhx: c/s at 37 wks 2/2 preeclampsia; sab x5 gyne: denies sti; pap neg medhx: none famhx: none surg: c/s soc: denies smoking, etoh, illicit drugs rx: pnv Allergies: ibuprophen (hives) AAOX3; tachycardia cardiac: s1s2 lungs: clear bilaterally, no wheezing abdo: gravid 27 yo IUP 32.3 -cough, nausea -rx: acetaminophen and reglan - monitor -monitor mother for wellness case dw OB Kenneyd Vences MD PGY1 Pelvic Type - PN: Adequate Extremities - PN: Normal Abdomen - PN: Normal Back - PN: Normal Breast - PN: Normal Lungs - PN: Normal Heart - PN: Normal Thyroid - PN: Normal Neurologic - PN: Normal HEENT - PN: Normal General - PN: Normal Presentation-Admit: Vertex FHR - Baseline A Provider: 140 Contraction Comments Provider: none Gestation - Est Wks by US: 31.0 EGA AdmitDate IP: 32.3 Vital Signs Provider: Reviewed; Within Normal Limits IP Chief Complaint: Maternal discomfort NICHD Variability Prov Fetus A: Moderate 6-25bpm NICHD Accel Fetus A IP Provider: 15X15 FHR Category Provider Fetus A: Category I NICHD Decel Fetus A IP Provider: None Dilatation, Provider: 0 Genitourinary Exam: Normal DTRs - PN: Not Done
== END 2017-05-08 17:15 | disposition home or self-care (01) ==
LOC: H.EROB2 12:31
DX: O26.93 Pregnancy related conditions, unspecified, third trimester (principal); R05 Cough; Z3A.32 32 weeks gestation of pregnancy; Z87.59 Personal history of other complications of pregnancy, childbirth and the puerperium

== ENCOUNTER 2017-06-27 07:02 | Inpatient (IN) | payer OTHER ==
[2017-06-27 07:43] VITALS: BMI 33.3
[2017-06-27] MEDS ORDERED: ceFAZolin IV 2 gm in Dextrose 2 GM/50 ML BAG IVPB ONE (07:47)
[2017-06-27] MEDS ORDERED: Lactated Ringer's 1,000 ML IV SCH (08:00)
[2017-06-27] MEDS: Lactated Ringer's 1,000 ML IV SCH ×4 (08:00→22:05)
[2017-06-27] MEDS ORDERED: Oxytocin 30 units/LR 500ML 30 U/500 ML BAG IV SCH (08:00)
[2017-06-27 08:52] LABS: BASO % 0.4 % (0.0-2.0); EOS # 0.1 K/uL (0.0-0.7); EOS % 1.1 % (0.0-4.0); HEMOGLOBIN 10.7 g/dL (12.0-16.0); LYMPH # 2.5 K/uL (1.0-4.3); LYMPH % 21.6 % (20.0-40.0); MEAN CELL VOLUME 75.9 fl (81.0-99.0); MEAN CORPUSCULAR HEMOGLOBIN 24.8 pg (27.0-31.0); MEAN CORPUSCULAR HGB CONC 32.6 g/dL (33.0-37.0); MEAN PLATELET VOLUME 9.8 fl (7.2-11.7); MONO # 0.8 K/uL (0.0-0.8); MONO % 6.7 % (0.0-10.0); NEUT # 8.3 K/uL (1.8-7.0); NEUT % 70.2 % (50.0-75.0); NRBC % 0.2 % (0.0-0.0); RBC 4.31 Mil/uL (3.80-5.20); RED CELL DISTRIBUTION WIDTH 16.3 % (11.5-14.5); WHITE BLOOD COUNT 11.8 K/uL (4.8-10.8)
[2017-06-27] MEDS ORDERED: Morphine 1 mg/ml preservative-free Inj(Duramorph) ONE (10:21)
[2017-06-27] MEDS ORDERED: Morphine 1 mg/ml preservative-free Inj(Duramorph) IT ONE ×2 (11:02→14:48)
[2017-06-27] MEDS ORDERED: HYDROmorphone 0.5 mg/0.5 ml ISec IVP PRN (11:45)
--- NOTE | 2017-06-27 11:53 | OBADHP ---
Datetime: 06/27/2017 11:44 Admit Comment, IP Provider: iup at 39 weeks uneventful course previous section admitted for repeat sectio and bilateral tubal ligation Pelvic Type - PN: Adequate Extremities - PN: Normal Abdomen - PN: Normal Back - PN: Normal Breast - PN: Normal Lungs - PN: Normal Heart - PN: Normal Thyroid - PN: Normal Neurologic - PN: Normal HEENT - PN: Normal General - PN: Normal Presentation-Admit: Vertex FHR - Baseline A Provider: 130 Membranes, Provider: Intact Gestation - Est Wks by US: 39.0 Vital Signs Provider: Reviewed; Within Normal Limits NICHD Accel Fetus A IP Provider: 10X10 FHR Category Provider Fetus A: Category I NICHD Decel Fetus A IP Provider: None Genitourinary Exam: Normal DTRs - PN: Normal IP Adm Impression: Term, intrauterine ; Intact Membranes IP Admit Plan: Admit to unit; Initiate Section protocol Datetime: 06/27/2017 08:19 IP Chief Complaint: Scheduled Section NICHD Variability Prov Fetus A: Moderate 6-25bpm EGA AdmitDate IP: 39.0 Datetime: 05/08/2017 13:30 Contraction Comments Provider: none Dilatation, Provider: 0 Datetime: 03/12/2017 12:49 Effacement, Provider: 0 Station, Provider: -3
--- NOTE | 2017-06-27 12:00 | OBDS ---
DELIVERY PERSONNEL Delivery Doctor: Rahat Gilbert MD Signal Integrity Engineer: Tessa Nicolas RN Anesthesiologist: Dr. Brantley MATERNAL INFORMATION Delivery Anesthesia: Spinal Medications in Delivery: pitocin Estimated Blood Loss (ml): 750 Placenta Cultured: No Maternal Complications: None Provider Comments: delivery of live baby girl 9/9 clear fluid cor with 3 vessels placenta ante rior tubes and ovaries wnl bilateral tubal ligation modified armida LABOR SUMMARY EDC: 07/04/2017 00:00 No. Babies in Womb: 1 LABOR INFORMATION Reason for Induction: Not Applicable Onset of Labor: not in labor. pt is scheduled repeat c/s Group B Beta Strep: Positive Steroids Given: None Reason Steroids Not Administered: Not Applicable STAGES OF LABOR Stage 3 hrs: 0 Stage 3 min: 1 VAGINAL DELIVERY Episiotomy: None Laceration Extension: N/A Laceration Type: None CSECTION DELIVERY Primary Indication: Repeat Elective Secondary Indication: Repeat Elective CSection Urgency: Elective CSection Incidence: Repeat Labor: N/A CSection Incision: N/A Sterilization Procedure: Armida BABY A INFORMATION Delivery Date/Time: 06/27/2017 10:56 Method of Delivery: Born in Route : No : N/A Forceps: N/A Vacuum Extraction: N/A Shoulder Dystocia : No SHOULDER DYSTOCIA BABY A Delivery Date/Time: 06/27/2017 10:56 PRESENTATION/POSITION BABY A Presentation: Cephalic Cephalic Presentation: Vertex Breech Presentation: N/A PLACENTA INFORMATION BABY A Placenta Delivery Time : 06/27/2017 10:57 Placenta Method of Delivery: Manual Removal Placenta Status: Delivered SCORES BABY A Heart Rate 1 min: >100 bpm Resp Effort 1 min: Good Cry Reflex Irritability 1 min: Cough or Sneeze or Pulls Away Muscle Tone 1 min: Active Motion Color 1 min: Body [place], Extremities Blue Resuscitation Effort 1 min: Tactile Stimulation SCORE 1 MIN: 9 Heart Rate 5 min: >100 bpm Resp Effort 5 min: Good Cry Reflex Irritability 5 min: Cough or Sneeze or Pulls Away Muscle Tone 5 min: Active Motion Color 5 min: Body [place], Extremities Blue Resuscitation Effort 5 min: Tactile Stimulation SCORE 5 MIN: 9 INFORMATION BABY A Gestational Age at Delivery: 39.0 Gestational Status: Term Infant Outcome : Liveborn Condition : Stable Sex: Female IDENTIFICATION/MEDS BABY A ID Band Number: [id number] ID Band Location: Left Leg; Left Arm Vitamin K Given : Not Given Erythromycin Given: Not Given WEIGHT/LENGTH BABY A Infant Birthweight (gms): 3710 Weight (lb): 8 Infant Weight (oz): 3 Length Inches: 19.50 Length cms: 49.5 CORD INFORMATION BABY A No. Cord Vessels: 3 Nuchal Cord : Around Neck x1, Loose Cord Blood Taken: Yes Suction: Mouth ASSESSMENT BABY A Complications: None Physical Findings at Delivery: Within Normal Limits Respirations: Appears Normal Orthotic/Prosthetic Practitioner/ALS Called : No Care By: Dr. Tejada, Transferred To: Remains with Mother
[2017-06-27] MEDS ORDERED: Oxycodone/Acetaminophen 5/325 mg Tab PO PRN ×3 (12:03→14:48)
[2017-06-27] MEDS ORDERED: Bisacodyl 5mg EC Tab PO PRN ×2 (12:03→14:48)
--- NOTE | 2017-06-27 16:05 | OP ---
PROCEDURE DATE: 06/27/2017 PREOPERATIVE DIAGNOSIS: Term and previous section for repeat section and multiparity. POSTOPERATIVE DIAGNOSIS: Term and previous section and multiparity. PROCEDURE: Repeat low-transverse section and bilateral tubal ligation. SURGEON: Chucky Gilbert MD ELIGIBILITY SUPERVISOR: Bert Guardado MD TYPE OF ANESTHESIA: Spinal anesthesia. ANESTHESIA ADMINISTERED BY: Dr. Brantley. FINDINGS: Term-size uterus, live baby girl, Apgars of 9 and 9, clear fluid, cord with 3 vessels, one loose cord around the neck. Placenta, tubes and ovaries were within normal limits. ESTIMATED BLOOD LOSS: 750 mL. DESCRIPTION OF PROCEDURE: With the patient in supine position under spinal anesthesia, the patient was prepped and draped in the usual sterile manner. Dr. Guardado was present and preparing the patient for surgery. A Pfannenstiel incision was made and taken down to the fascia in layers. Fascia was incised and extended bilaterally. Dr. Guardado did his half and I did my half. After this, the peritoneum was grasped and incised vertically. Upon entering the abdominopelvic cavity, wet laps were used to pack the paracolic gutters with pushing the bowel away from the operative field. Dr. Guardado assisting along the way. We then established bladder flap. After this was done, the bladder was pushed away from the operative field. Then, low-transverse incision was made in the uterus bilaterally curving upwards. Baby was removed without any complications, and given to house painting instructor who resuscitated. The placenta was then removed and intact. Uterus was then exteriorized and cleaned, and closed in 2 layers with 1 Vicryl running interlocking stitch maintaining hemostasis. After this was done, both tubes were ligated bilaterally using modified Hasty fashion and maintaining hemostasis. After this was done, pelvic cavity and abdominal cavity was irrigated until clean. Uterus was repositioned and tubes were observed to be clean and no bleeding. After this was done, the peritoneum was then grasped and closed with 1 Vicryl. The muscles were approximated with 1 Vicryl. Following this, the fascia was closed with 1 Vicryl running interlocking stitch, starting at each end and finished in the midline. Dr. Guardado did his half and I did my half. Following this, subcutaneous tissue was closed with 2-0 plain and following this stitch was applied on to the closing incision. Dr. Guardado was there from the beginning to the last staple. The patient was in satisfactory condition and went to recovery room after this was done. The patient tolerated procedure well on satisfactory condition on the way to recovery room. Estimated blood loss was about 750 mL. Chucky Gilbert MD
[2017-06-28] MEDS: Lactated Ringer's 1,000 ML IV SCH (06:23)
[2017-06-28 07:11] LABS: BASO % 0.2 % (0.0-2.0); EOS # 0.1 K/uL (0.0-0.7); EOS % 0.6 % (0.0-4.0); HEMOGLOBIN 9.8 g/dL (12.0-16.0); LYMPH # 1.5 K/uL (1.0-4.3); MEAN CELL VOLUME 76.1 fl (81.0-99.0); MEAN CORPUSCULAR HEMOGLOBIN 24.6 pg (27.0-31.0); MEAN CORPUSCULAR HGB CONC 32.3 g/dL (33.0-37.0); MEAN PLATELET VOLUME 9.5 fl (7.2-11.7); MONO # 0.8 K/uL (0.0-0.8); MONO % 6.5 % (0.0-10.0); NEUT # 10.1 K/uL (1.8-7.0); NEUT % 80.7 % (50.0-75.0); NRBC % 0.2 % (0.0-0.0); RBC 3.97 Mil/uL (3.80-5.20); RED CELL DISTRIBUTION WIDTH 16.5 % (11.5-14.5); WHITE BLOOD COUNT 12.6 K/uL (4.8-10.8)
[2017-06-28] MEDS ORDERED: Multivitamin With Minerals Tab PO SCH (09:00)
[2017-06-28] MEDS: Multivitamin With Minerals Tab PO SCH (09:01)
--- NOTE | 2017-06-28 09:15 | OBPPN ---
Datetime: 06/28/2017 09:12 PP Pain Prov: Within normal limits PP Nausea Prov: Denies PP Flatus Prov: Yes PP BM Prov: No PP Breasts Prov: Normal PP Heart Prov: Normal PP Lungs Prov: Normal PP Abdomen/Uterus Prov: Normal PP Lochia Prov: Normal PP Vulva/Perineum Prov: Normal PP CVA Tenderness Prov: Normal PP Extremities Prov: Normal PP C/S Incision Prov: Normal PP Progress Prov: Normal PP Impression Prov: Normal progression PP Plan Prov: Continue present management PP Progress Note Prov: stable pod1 continue present care dc ramirez oob with assistance may shower IP PP Procedures: None Vital Signs Provider PP: Reviewed; Within Normal Limits
[2017-06-28] MEDS: Oxycodone/Acetaminophen 5/325 mg Tab PO PRN ×2 (12:23→18:50)
[2017-06-29] MEDS: Oxycodone/Acetaminophen 5/325 mg Tab PO PRN ×3 (04:59→15:26)
--- NOTE | 2017-06-29 09:54 | OBPPN ---
Datetime: 06/29/2017 09:49 PP Pain Prov: Within normal limits PP Nausea Prov: Denies PP Flatus Prov: Yes PP BM Prov: No PP Breasts Prov: Normal PP Heart Prov: Normal PP Lungs Prov: Normal PP Abdomen/Uterus Prov: Normal PP Lochia Prov: Normal PP Vulva/Perineum Prov: Normal PP CVA Tenderness Prov: Normal PP Extremities Prov: Normal PP C/S Incision Prov: Normal PP Progress Prov: Normal PP Impression Prov: Normal progression PP Plan Prov: Continue present management PP Progress Note Prov: stable pod2 continue care IP PP Procedures: None Vital Signs Provider PP: Reviewed; Within Normal Limits
[2017-06-30] MEDS ORDERED: Influenza Vaccine 18yr & older 0.5 ML/45 MCG SYR IM ONE (08:00)
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
--- NOTE | 2017-06-30 08:30 | OBDCSUM ---
Datetime: 06/30/2017 08:27 Discharged to, Provider: Home Follow up at, Provider: Lizzie Gilbert Disch Instr Activity: Normal activity Disch Instr Diet: Regular Discharge Instructions, Provider: Routine instructions given Discharge Diagnosis, Provider: Term Delivered Follow up in weeks, Provider: 1-2w Disch Referrals: None Contraception discussed, Prov: Yes Disch Activity Restrictions: No lifting; No sexual activity; Nothing in vagina - [place], tampon s, douche
[2017-06-30] MEDS: Multivitamin With Minerals Tab PO SCH (09:36)
[2017-06-30 10:19] VITALS: BP 126/85; PULSE 96; RESP 20; TEMP 98.2
[2017-06-30 15:44] VITALS: O2SAT 99
== END 2017-06-30 10:11 | disposition home or self-care (01) | DRG 371 ==
LOC: H.EROB2 07:02 → H.L&D 07:47 → H.OB/GYN 14:23
PROVIDERS: ADMIT Specialist; ATTEND Specialist
PROC: 10D00Z1 Extraction of Products of Conception, Low, Open Approach (ICD-10-PCS; principal; 2017-06-27)
PROC: 0UB70ZZ Excision of Bilateral Fallopian Tubes, Open Approach (ICD-10-PCS; 2017-06-27)
PROC: 4A1HXCZ Monitoring of Products of Conception, Cardiac Rate, External Approach (ICD-10-PCS; 2017-06-27)
DX: O34.219 Maternal care for unspecified type scar from previous cesarean delivery (principal); N85.8 Other specified noninflammatory disorders of uterus; Z37.0 Single live birth; O69.81X0 Labor and delivery complicated by cord around neck, without compression, not applicable or unspecified; Z3A.39 39 weeks gestation of pregnancy; Z30.2 Encounter for sterilization